=== PATIENT | male | born 1960 | race Caucasian/White ===

== ENCOUNTER 2019-04-11 10:30 | Emergency (ER) | payer OTHER ==
[~2019-04-11] VITALS: Ht 172.7 cm; Wt 90.9 kg
[2019-04-11 10:47] VITALS: BP 168/96; PULSE 100; TEMP 97.9
[2019-04-11] MEDS ORDERED: ZITHROMAX Z PA250 MG PO (12:29)
== END 2019-04-11 12:36 | disposition home or self-care (01) ==
LOC: COL.ER 10:30
DX: R07.89 Other chest pain (principal); R05 Cough; V43.52XA Car driver injured in collision with other type car in traffic accident, initial encounter